=== PATIENT | male | born 1975 | race African-American/Black ===

== ENCOUNTER 2018-11-30 23:18 | Emergency (ER) | payer MEDICAID ==
[~2018-11-30] VITALS: Ht 188 cm; Wt 90.9 kg
[2018-11-30] MEDS ORDERED: BUPR100 PO (23:58)
[2018-12-01 01:29] VITALS: BP 128/87
[2018-12-01] MEDS ORDERED: HYDROCODONE/ACETAMINOPHEN 5-325 MG TABLET PO ONE (01:30)
[2018-12-01] MEDS ORDERED: PENICILLIN V POTASSIUM 500 MG TABLET PO ONE (01:30)
== END 2018-12-01 01:40 | disposition home or self-care (01) ==
LOC: EMS 23:20
DX: K02.9 Dental caries, unspecified (principal); K04.7 Periapical abscess without sinus; F32.9 Major depressive disorder, single episode, unspecified; Z79.899 Other long term (current) drug therapy

== ENCOUNTER 2019-01-13 11:47 | Emergency (ER) | payer MEDICAID ==
[~2019-01-13] VITALS: Ht 177.8 cm; Wt 88.4 kg
[~2019-01-13 11:47] MED LIST: BUPR100 PO
[2019-01-13] MEDS ORDERED: BUPR100 PO (11:58)
[2019-01-13] MEDS ORDERED: GABA-531 PO (12:20)
[2019-01-13] MEDS ORDERED: BUPR-47 PO (12:20)
[2019-01-13] MEDS ORDERED: KETOROLAC TROMETHAMINE 30 MG/ML VIAL IVP ONE (12:30)
[2019-01-13] MEDS ORDERED: KETOROLAC TROMETHAMINE 30 MG/ML VIAL IM ONE (12:30)
[2019-01-13] MEDS ORDERED: MORPHINE SULFATE 4 MG/ML SYRINGE IVP ONE (13:45)
[2019-01-13] MEDS ORDERED: ONDANSETRON HCL 4 MG/2 ML VIAL IVP ONE (13:45)
[2019-01-13 14:40] VITALS: BP 141/81
[2019-01-13] MEDS ORDERED: DIAZEPAM 5 MG/ML 2 ML SYRINGE IVP ONE (15:45)
[2019-01-13] MEDS ORDERED: HYDROmorphone 2 MG/ML SYRINGE IVP ONE (17:00)
[2019-01-13] MEDS ORDERED: SODIUM CHLORIDE 0.9% 1,000 ML IV ONE (17:00)
== END 2019-01-13 17:28 | disposition left against medical advice (07) ==
LOC: EMS 11:48
DX: S09.90XA Unspecified injury of head, initial encounter (principal); M54.9 Dorsalgia, unspecified; R42 Dizziness and giddiness; M54.2 Cervicalgia; M25.521 Pain in right elbow; M25.511 Pain in right shoulder; F41.9 Anxiety disorder, unspecified; F32.9 Major depressive disorder, single episode, unspecified; Z79.899 Other long term (current) drug therapy; W01.0XXA Fall on same level from slipping, tripping and stumbling without subsequent striking against object, initial encounter; Y93.89 Activity, other specified; Y92.512 Supermarket, store or market as the place of occurrence of the external cause; Y99.8 Other external cause status
CPT/HCPCS: 70450; 72125; 72128; 72131; 73030; 73080; 96372; 96374; 96375; 99284; J1885 ×2; J2270; J2405

== ENCOUNTER 2019-01-15 15:10 | Emergency (ER) | payer MEDICAID ==
[~2019-01-15] VITALS: Ht 188 cm; Wt 97.7 kg
[~2019-01-15 15:10] MED LIST changes: +BUPR-47 PO; -BUPR100 PO; +GABA-531 PO
[2019-01-15] MEDS ORDERED: BUPR-93 PO (15:17)
[2019-01-15] MEDS ORDERED: KETOROLAC TROMETHAMINE 30 MG/ML VIAL IM ONE (18:30)
[2019-01-15 21:50] VITALS: BP 118/71
== END 2019-01-15 22:00 | disposition home or self-care (01) ==
LOC: EMS 15:11
DX: M54.41 Lumbago with sciatica, right side (principal); F41.9 Anxiety disorder, unspecified; F32.9 Major depressive disorder, single episode, unspecified; W01.0XXA Fall on same level from slipping, tripping and stumbling without subsequent striking against object, initial encounter; Y93.89 Activity, other specified; Y92.512 Supermarket, store or market as the place of occurrence of the external cause; Y99.8 Other external cause status
CPT/HCPCS: 72148; 96372; 99284; J1885

== ENCOUNTER 2019-02-02 15:03 | Emergency (ER) | payer MEDICAID ==
[~2019-02-02] VITALS: Ht 188 cm; Wt 91.0 kg
[2019-02-02] MEDS ORDERED: TRAM50TA4 PO (15:24)
[2019-02-02 15:43] LABS: BASOPHILS % (AUTO) 0.3 % (0.0-2.0); EOSINOPHILS % (AUTO) 1.4 % (1.0-6.0); HEMATOCRIT 42.5 % (41-53); HEMOGLOBIN 14.1 g/dL (13.5-17.5); LYMPHOCYTES # (AUTO) 1.5 K/uL (1.0-4.8); LYMPHOCYTES % (AUTO) 23.8 % (22.0-44.0); MEAN CORPUSCULAR HEMOGLOBIN 27.2 pg (26.0-34.0); MEAN CORPUSCULAR HGB CONC 33.2 G/dL (31.0-37.0); MEAN CORPUSCULAR VOLUME 82 fL (80-100); MONOCYTES # (AUTO) 0.4 K/uL (0.1-1.0); MONOCYTES % (AUTO) 6.2 % (2.0-9.0); NEUTROPHILS # (AUTO) 4.4 K/uL (1.8-7.7); NEUTROPHILS % (AUTO) 68.3 % (40.0-70.0); PLATELET COUNT (AUTO) 243 K/uL (150-450); RED BLOOD CELL COUNT(AUTO) 5.19 MIL/uL (4.50-5.90); RED CELL DISTRIBUTION WIDTH 13.3 % (11.5-14.5)
[2019-02-02] MEDS ORDERED: NITROGLYCERIN 0.4 MG SUBLINGUAL TABLET #25 SL ONE ×3 (15:45→16:00)
[2019-02-02 15:59] LABS: ANION GAP 10 mmol/L (8-16); CALCIUM, TOTAL 9.1 mg/dL (8.8-10.5); CARBON DIOXIDE 29 mmol/L (22-29); CHLORIDE 103 mmol/L (98-107); CREATININE 1.24 mg/dL (0.60-1.30); GLOMERULAR FILTR. RATE CALC > 60 mL/min (>60); GLUCOSE,RANDOM 106 mg/dL (70-110); POTASSIUM 3.3 mmol/L (3.5-5.1); SODIUM SERUM 142 mmol/L (136-145); UREA NITROGEN, BLOOD 15 mg/dL (7-18)
[2019-02-02 16:05] LABS: ALANINE AMINOTRANSFERASE 17 U/L (12-78); ALKALINE PHOSPHATASE 57 U/L (46-116); ASPARTATE AMINOTRANSFERASE 17 U/L (15-37); BILIRUBIN,TOTAL 0.7 mg/dL (0.1-1.0); TOTAL PROTEIN, SERUM 7.3 g/dL (6.4-8.2)
[2019-02-02 17:24] VITALS: BP 130/78
== END 2019-02-02 17:35 | disposition home or self-care (01) ==
LOC: EMS 15:05
DX: R07.89 Other chest pain (principal); F41.9 Anxiety disorder, unspecified; F32.9 Major depressive disorder, single episode, unspecified; Z98.890 Other specified postprocedural states; Z79.899 Other long term (current) drug therapy
CPT/HCPCS: 85379; 93005

== ENCOUNTER 2019-12-24 18:29 | Emergency (ER) | payer MEDICAID ==
[~2019-12-24] VITALS: Ht 185.4 cm; Wt 96.8 kg
[~2019-12-24 18:29] MED LIST changes: +TRAM50TA4 PO
[2019-12-24 18:41] VITALS: BP 114/87
== END 2019-12-24 19:39 | disposition left against medical advice (07) ==
LOC: EMS 18:29
DX: H57.11 Ocular pain, right eye (principal); Z53.21 Procedure and treatment not carried out due to patient leaving prior to being seen by health care provider

== ENCOUNTER 2020-02-18 14:08 | Emergency (ER) | payer MEDICAID ==
[~2020-02-18] VITALS: Ht 188 cm; Wt 93.2 kg
[2020-02-18] MEDS ORDERED: LIDOCAINE 5% TRANSDERMAL PATCH TD ONE (17:00)
[2020-02-18 17:23] VITALS: BP 136/71
== END 2020-02-18 17:32 | disposition home or self-care (01) ==
LOC: EMS 14:08
DX: M54.2 Cervicalgia (principal); M25.512 Pain in left shoulder; M54.5 Low back pain; G89.29 Other chronic pain; F41.9 Anxiety disorder, unspecified; F32.9 Major depressive disorder, single episode, unspecified
CPT/HCPCS: 72040

== ENCOUNTER 2020-07-14 14:59 | Emergency (ER) | payer MEDICAID ==
[~2020-07-14] VITALS: Ht 188 cm; Wt 90.9 kg
[~2020-07-14 14:59] MED LIST changes: -BUPR-47 PO; +BUPR-49 PO
[2020-07-14 17:03] VITALS: BP 139/77
== END 2020-07-14 17:11 | disposition home or self-care (01) ==
LOC: EMS 15:02
DX: J40 Bronchitis, not specified as acute or chronic (principal); F41.9 Anxiety disorder, unspecified; F32.9 Major depressive disorder, single episode, unspecified; F17.210 Nicotine dependence, cigarettes, uncomplicated; Z88.6 Allergy status to analgesic agent
CPT/HCPCS: 71046; 99283